=== PATIENT | female | born 1975 | race Caucasian/White ===

== ENCOUNTER → 2017-05-14 | Outpatient (CLI) | payer OTHER ==
--- NOTE | 2017-05-16 15:12 | RADIOLOGY REPORT (SQ) ---
EXAM DESCRIPTION: NM HIDA SCAN WITH CCK COMPLETED DATE/TIME: 05/14/2017, 1330 hours REASON FOR STUDY: Abdominal pain COMPARISON: Report, [facility] abdominal ultrasound 04/30/2017 TECHNIQUE: Hepatobiliary scan imaging was performed after injection of 5.3 mCi technetium 99 M mebro fenin for 1 hour. Patient was injected with 1.5 mcg IV cholecystokinin for gallbladder ejection frac tion which was calculated over a 30 minute period. RADIATION DOSE: 5.3 mCi technetium 99 M mebrofenin and LIMITATIONS: None FINDINGS: There is prompt homogeneous liver uptake. Gallbladder and common bile duct are not visualized by 12 minutes. Small bowel activity is identified by 15 minutes. Post cholecystokinin, the gallbladder ejection fraction is calculated at 28% (normal greater than 35% ). IV cholecystokinin reproduced the patient's symptoms. IMPRESSION: No scintigraphic evidence of cystic duct or common duct obstruction. Biliary dyskinesis, depressed gallbladder ejection fraction. IV cholecystokinin reproduced the patie nt's symptoms.
== END ==
LOC: RAD 12:37
DX: R10.9 Unspecified abdominal pain (principal); R11.0 Nausea; R93.5 Abnormal findings on diagnostic imaging of other abdominal regions, including retroperitoneum
CPT/HCPCS: 78227; A9537; Q9969; J2805